=== PATIENT | female | born 1980 | race Caucasian/White ===

== ENCOUNTER → 2021-05-05 | Outpatient (CLI) | payer BC ==
[2021-05-05 09:06] LABS: BUN/CREATININE RATIO 22 (0-10)
== END ==
LOC: LAB 08:05
PROVIDERS: Nurse Practitioner Family
DX: I10 Essential (primary) hypertension (principal)
CPT/HCPCS: 36415; 80048

== ENCOUNTER → 2021-05-13 | Outpatient (CLI) | payer BC ==
[2021-05-15 09:12] LABS: THYROID PEROXIDASE (TPO) AB <8 IU/mL (0-34); TRIIODOTHYRONINE (T3) 154 ng/dL (71-180)
[2021-05-17 16:11] LABS: THYROGLOBULIN ANTIBODY <1.0 IU/mL (0.0-0.9)
== END ==
LOC: LAB 17:06
PROVIDERS: Nurse Practitioner Family
DX: R53.83 Other fatigue (principal); R63.5 Abnormal weight gain
CPT/HCPCS: 84439; 84443; 84480; 84481; 86376; 86800

== ENCOUNTER → 2021-08-26 | Outpatient (CLI) | payer BC ==
[2021-08-26 09:00] LABS: RED BLOOD COUNT 4.72 M/UL (4.00-5.10); WHITE BLOOD COUNT 7.5 K/UL (4.5-11.0)
[2021-08-27 07:11] LABS: A/G RATIO 1.7 (1.2-2.2); ALKALINE PHOSPHATASE, S 65 IU/L (44-121); ALT (SGPT) 21 IU/L (0-32); AST (SGOT) 24 IU/L (0-40); BILIRUBIN, TOTAL 0.5 mg/dL (0.0-1.2); BUN 15 mg/dL (6-20); BUN/CREATININE RATIO 17 (9-23); CALCIUM, SERUM 9.1 mg/dL (8.7-10.2); CARBON DIOXIDE, TOTAL 21 mmol/L (20-29); CHLORIDE, SERUM 101 mmol/L (96-106); CREATININE, SERUM 0.86 mg/dL (0.57-1.00); EGFR IF AFRICN AM 98 (>59); EGFR IF NONAFRICN AM 85 (>59); GLOBULIN, TOTAL 2.6 g/dL (1.5-4.5); GLUCOSE, SERUM 97 mg/dL (65-99); POTASSIUM, SERUM 4.3 mmol/L (3.5-5.2); SODIUM, SERUM 138 mmol/L (134-144)
[2021-08-27 08:14] LABS: CHOLESTEROL, TOTAL 190 mg/dL (100-199); HDL CHOLESTEROL 46 mg/dL (>39); LDL CHOLESTEROL CALC 130 mg/dL (0-99); LDL/HDL RATIO 2.8 ratio (0.0-3.2); T. CHOL/HDL RATIO 4.1 ratio (0.0-4.4); TRIGLYCERIDES 73 mg/dL (0-149); VITAMIN D, 25-HYDROXY 43.1 ng/mL (30.0-100.0)
[2021-08-27 09:15] LABS: ESTIM. AVG GLU (EAG) 117 mg/dL (.); HEMOGLOBIN A1C 5.7 % (4.8-5.6)
[2021-08-27 13:15] LABS: CREATININE, URINE 179.6 mg/dL (Not Estab.)
== END ==
LOC: LAB 08:34
PROVIDERS: Nurse Practitioner Family
DX: Z00.00 Encounter for general adult medical examination without abnormal findings (principal); R73.9 Hyperglycemia, unspecified; I10 Essential (primary) hypertension; J30.9 Allergic rhinitis, unspecified; F41.1 Generalized anxiety disorder; E78.5 Hyperlipidemia, unspecified; E88.81 Metabolic syndrome and other insulin resistance
CPT/HCPCS: 36415; 80053; 80061; 82043; 82570; 82607; 83036; 84439; 84443; 85025

== ENCOUNTER → 2021-10-08 | Outpatient (CLI) | payer BC | LOC: KOH-I 13:30 | DX: R07.9 Chest pain, unspecified (principal); R05.9 Cough, unspecified | CPT/HCPCS: 71046 ==

== ENCOUNTER → 2022-03-08 | Outpatient (CLI) | payer BC | LOC: RAD 11:48 | DX: M25.512 Pain in left shoulder (principal); Z91.81 History of falling; M19.012 Primary osteoarthritis, left shoulder | CPT/HCPCS: 73030 ==